=== PATIENT | female | born 1980 | race African-American/Black ===

== ENCOUNTER 2017-03-07 15:52 | Inpatient (IN) ==
[2017-03-07] MEDS ORDERED: MEPERIDINE 25 MG/1 ML VIAL IV PRN (21:02)
[2017-03-07] MEDS ORDERED: ONDANSETRON 4 MG/2 ML VIAL IV PRN (21:04)
[2017-03-07] MEDS ORDERED: SODIUM CHLORIDE 0.9% 1,000 ML IV SCH (21:30)
--- NOTE | 2017-03-07 22:07 | Ultrasound Report ---
History: Pain. Shortness of breath Date: 03/07/2017 Study: Bilateral lower extremity color-flow venous Doppler study Comparison exam: No previous Color Doppler, wave form analysis, and compression analysis of the deep veins of both lower extremities from the common femoral vein level through the popliteal vein level shows that the veins are readily compressible. There is no abnormal intraluminal material to suggest thrombus. Waveform analysis is unremarkable. Ultrasound images were captured and archived Impression: Normal bilateral lower extremity color flow venous Doppler study. No evidence of acute DVT PROCEDURE INTERPRETED AT [facility] [place] DEPARTMENT OF RADIOLOGY Final Report Signed by: Dr. Brook Wilson
[2017-03-07] MEDS: HEPARIN 5,000 UNIT/1 ML VIAL SUBCUT SCH (23:06)
[2017-03-08] MEDS: ACETAMINOPHEN 325 MG TABLET PO PRN ×3 (00:24→11:59)
[2017-03-08] MEDS: CLINDAMYCIN INJ 900 MG in PREMIX 1 EACH IV SCH ×3 (00:25→16:28)
[2017-03-08 01:07] LABS: Apearance,Urine CLEAR (Clear); Bacteria,Urine Moderate /HPF (Few); Bilirubin,Urine Negative (Negative); Blood, Urine Negative (Negative); Glucose,Urine (UA) Negative (Negative); Ketones,Urine 80 mg/dL (Negative); Nitrite,Urine Negative (Negative); Protein,Urine 100 MG/DL; RBC,Urine 2 /HPF (0-4); Squamous Epithelial Cell,Urine Occasional /HPF (0-10); Urine Color Yellow (Yellow); Urine Specific Gravity 1.038 (1.001-1.035); Urine Urobilinogen < 2.0 EU/DL (0.2-1.0); WBC,Urine 14 /HPF (0-6)
[2017-03-08] MEDS: metroNIDAZOLE INJ 500 MG in PREMIX 1 EACH IV SCH ×2 (04:58→20:37)
[2017-03-08] MEDS: HEPARIN 5,000 UNIT/1 ML VIAL SUBCUT SCH ×3 (05:58→20:36)
[2017-03-08 06:38] LABS: Basophils # 0.1 10*3/uL (0.0-0.2); Basophils % 0.2 % (0.0-0.8); Hematocrit 27.9 VOL% (35.7-47.0); Hemoglobin 9.5 GM/DL (12.0-16.0); Immature Granulocytes % 1.1 %; Immature Granulocytes Absolute 0.29 #; Lymphocytes # 1.3 10*3/uL (1.4-4.0); Lymphocytes % 4.8 % (21.3-54.2); Mean Corpuscular HGB Conc 34.1 GM/DL (32-36); Mean Corpuscular Hemoglobin 30 PG (27-34); Mean Corpuscular Volume 86.6 FL (87-102); Monocytes # 1.8 10*3/uL (0.11-0.8); Neutrophils # 22.8 10*3/uL (1.4-7.4); Neutrophils % 86.9 % (38.7-73.9); Platelet Count 238 T/CUMM (130-400); Red Blood Count 3.22 MC/CUMM (3.8-5.5); Red Cell Distribution Width 14.3 % (9.3-17.3); White Blood Count 26.2 T/CUMM (4-12)
[2017-03-08 07:12] LABS: Albumin 2.7 G/DL (3.4-5.0); Bilirubin,Total 1.3 MG/DL (0.2-1.0); Calcium 8.5 MG/DL (8.5-10.1); Osmolality,Calculated 272.7 MOS/KG (273-304); Potassium 3.1 MMOL/L (3.5-5.1); Total Protein 6.6 G/DL (6.4-8.3)
[2017-03-08 07:13] LABS: Band Neutrophils 7 % (0-10); Lymphocytes 2 % (20-55); Segmented Neutrophils 88 % (50-85)
[2017-03-08 07:14] LABS: Platelet Estimate Normal; Total Cells Counted 100
[2017-03-08] MEDS ORDERED: GENTAMICIN INJ 200 MG in SODIUM CHLORIDE 0.9% 100 ML IV ONE (09:00)
--- NOTE | 2017-03-08 09:12 | OB/GYN History & Physical ---
History of Present Illness History of present illness: Ms. pEps is a 37 year old female Home Medications Medication Instructions Recorded Confirmed Type Allopurinol 300 mg PO DAILY 03/08/17 03/08/17 History Amlodipine Besylate 10 mg PO DAILY 03/08/17 03/08/17 History hydroCHLOROthiazide 25 mg PO DAILY 03/08/17 03/08/17 History [Hydrochlorothiazide] Allergies Allergy/AdvReac Type Severity Reaction Status Date / Time hydrocodone [From Lortab] Allergy Severe HIVES Verified 02/17/15 16:18 Penicillins Allergy Severe HIVES Verified 02/17/15 16:18 Medical,Surgical,& Family Hx - Medical History Cardio: History of: Hypertension HEENT: History of: Eye Problem (GLASSES) Endocrine: No history of: Adrenal Disease, Diabetes Mellitus (IDDM), Diabetes Mellitus ( NIDDM), Thyroid Disorder, Endocrine Cancer, Endocrine Problems Respiratory: History of: Bronchitis ( A CHILD), Obstructive Sleep Apnea (USES CPAP AT HOME), Pneumonia ( A CHILD), Respiratory Problems No history of: Asthma, COPD, Intubation, Pulmonary Embolism, Pulmonary Hypertension, Lung Cancer Musculoskeletal: History of: Musculoskeletal Problems (GOUT (FEET,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)) Hematology: History of: Anemia No history of: Bleeding Problems, Clotting Problems, Sickle Cell Disease, Hematologic Cancer, Blood Disorders Reproductive: History of: Reproductive Problems (CYST REMOVED FROM OVARY IN 2009 (DOES NOT REMEMBER WHICH SIDE)) Other: History of: Skin Problems (KELOIDS BILATERAL EAR LOBES), Miscellaneous Medical Problems (I & D OF CYST/ABCESS ON BACK OF NECK IN 2006) - Surgical History Cardiac Surgeries: Patient Denies: Femoral-Popliteal Bypass Graft, Cardiac Catheterization, Cardiac Surgery, Carotid Endarterectomy, Internal Defibrillator, Vascular Access Devices Thoracic Surgeries: Patient denies;: Organ Transplant, Lobectomy HEENT Surgeries: Patient denies: Carotid Endarterectomy, Eye Surgery, Thyroid Surgery, Tonsilectomy & Adenoidectomy Abdominal Surgeries: Patient denies: Abdominal Surgery, Splenectomy Reproductive Surgeries: Surgical HX of;: Gynecologic Surgery (2009 CYST REMOVED FROM OVARY) - Family History Family History: Reports;: Family Diabetes (MOTHER, FATHER), Family Heart Disease (FATHER,PAT GRAND FATHER,MAT GM), Family Hypertension (FATHER, MOM,PAT GF), Family Stroke (PAT GM) Denies;: Family Anesthesia Reaction, Family Hematology, Family Psychiatric Problems Comment Only: Family Cancer (FATHER PROSTATE, PATERNAL GRANDFATHER PROSTATE, MAT GF BRAIN TUMOR) - Social History Smoking Status: Never smoker Frequency of Alcohol Use: None Type of Drug Use: None Exam YARDER - Constitutional Vitals: Vital Signs Temp Pulse Resp BP Pulse Ox 03/08/17 05:55 99.2 F 03/08/17 04:55 100.2 F H 03/08/17 04:50 100.2 F H 101 H 24 123/71 99 03/08/17 01:24 99.8 F H 03/08/17 01:20 99.8 F H 98 H 24 130/72 95 03/08/17 00:24 102.5 F H 03/08/17 00:20 102.5 F H 113 H 24 134/86 95 03/07/17 22:00 20 03/07/17 19:30 100.6 F H 97 H 22 115/58 95 Results - Labs CBC & BMP: 03/08/17 06:15 03/08/17 06:15
[2017-03-08] MEDS ORDERED: GLUCAGON 1 MG VIAL IM PRN (10:20)
[2017-03-08] MEDS ORDERED: MAGNESIUM HYDROXIDE SUSP 30 ML UDCUP PO PRN (10:20)
[2017-03-08] MEDS ORDERED: BISACODYL 10 MG SUPP RECTAL PRN (10:20)
[2017-03-08] MEDS ORDERED: DEXTROSE 50% 25 GM/50 ML VIAL IV PRN (10:20)
--- NOTE | 2017-03-08 10:27 | OB/GYN History & Physical ---
History of Present Illness Chief complaint: pelvic pain and fever History of present illness: Ms. Epps is a 37 year old female who was tranferred from [facility] last night. 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 The patient says she was doing fine until Saturday of this week when she woke up with a fever and started having pelvic pain. She took Tylenol and tried to go to work but it got worse and on , yesterday, she went to the doctor and they sent her to the ER for a CT scan. Yesterday she had a elevated white count of 27,000 and she had a CAT scan which showed a complex possible abscess on the left adnexal region. The patient had her last menstrual period about a week ago she has no known exposure to any STDs. She has never had any sexually transmitted infections. The patient is not on control and she does have one partner. The patient says the only medical problem she has is hypertension. The patient denies any urinary symptoms or GI symptoms. She has started having some diarrhea while hospitalized and some nausea while hospitalized but nothing prior to that. Home Medications Medication Instructions Recorded Confirmed Type Allopurinol 300 mg PO DAILY 03/08/17 03/08/17 History Amlodipine Besylate 10 mg PO DAILY 03/08/17 03/08/17 History hydroCHLOROthiazide 25 mg PO DAILY 03/08/17 03/08/17 History [Hydrochlorothiazide] Allergies Allergy/AdvReac Type Severity Reaction Status Date / Time hydrocodone [From Lortab] Allergy Severe HIVES Verified 02/17/15 16:18 Penicillins Allergy Severe HIVES Verified 02/17/15 16:18 Medical,Surgical,& Family Hx - Medical History Cardio: History of: Hypertension HEENT: History of: Eye Problem (GLASSES) Endocrine: No history of: Adrenal Disease, Diabetes Mellitus (IDDM), Diabetes Mellitus ( NIDDM), Thyroid Disorder, Endocrine Cancer, Endocrine Problems Respiratory: History of: Bronchitis ( A CHILD), Obstructive Sleep Apnea (USES CPAP AT HOME), Pneumonia ( A CHILD), Respiratory Problems No history of: Asthma, COPD, Intubation, Pulmonary Embolism, Pulmonary Hypertension, Lung Cancer Musculoskeletal: History of: Musculoskeletal Problems (GOUT (FEET,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)) Hematology: History of: Anemia No history of: Bleeding Problems, Clotting Problems, Sickle Cell Disease, Hematologic Cancer, Blood Disorders Reproductive: History of: Reproductive Problems (CYST REMOVED FROM OVARY IN 2009 (DOES NOT REMEMBER WHICH SIDE)) Other: History of: Skin Problems (KELOIDS BILATERAL EAR LOBES), Miscellaneous Medical Problems (I & D OF CYST/ABCESS ON BACK OF NECK IN 2006) - Surgical History Cardiac Surgeries: Patient Denies: Femoral-Popliteal Bypass Graft, Cardiac Catheterization, Cardiac Surgery, Carotid Endarterectomy, Internal Defibrillator, Vascular Access Devices Thoracic Surgeries: Patient denies;: Organ Transplant, Lobectomy HEENT Surgeries: Patient denies: Carotid Endarterectomy, Eye Surgery, Thyroid Surgery, Tonsilectomy & Adenoidectomy Abdominal Surgeries: Patient denies: Abdominal Surgery, Splenectomy Reproductive Surgeries: Surgical HX of;: Gynecologic Surgery (2009 CYST REMOVED FROM OVARY) - Family History Family History: Reports;: Family Diabetes (MOTHER, FATHER), Family Heart Disease (FATHER,PAT GRAND FATHER,MAT GM), Family Hypertension (FATHER, MOM,PAT GF), Family Stroke (PAT GM) Denies;: Family Anesthesia Reaction, Family Hematology, Family Psychiatric Problems Comment Only: Family Cancer (FATHER PROSTATE, PATERNAL GRANDFATHER PROSTATE, MAT GF BRAIN TUMOR) - Social History Smoking Status: Never smoker Frequency of Alcohol Use: None Type of Drug Use: None Exam ANGLE BENDER - Constitutional Vitals: Vital Signs Temp Pulse Resp BP Pulse Ox 03/08/17 05:55 99.2 F 03/08/17 04:55 100.2 F H 03/08/17 04:50 100.2 F H 101 H 24 123/71 99 03/08/17 01:24 99.8 F H 03/08/17 01:20 99.8 F H 98 H 24 130/72 95 03/08/17 00:24 102.5 F H 03/08/17 00:20 102.5 F H 113 H 24 134/86 95 03/07/17 22:00 20 03/07/17 19:30 100.6 F H 97 H 22 115/58 95 General appearance: mild distress, morbidly obese - Head Head exam: Present: normal inspection - Respiratory Respiratory exam: Present: clear to auscultation bilaterally. Absent: accessory muscle use - Breast Menstruation: menses 1-7 days, period normal - Cardiovascular Cardiovascular exam: Present: regular rate and rhythm - GI/Abdominal GI/Abdominal exam: Present: soft. Absent: guarding, tenderness, rebound - Extremities Exam Extremities exam: Absent: calf tenderness - Neurological Exam Neurological exam: Present: alert, oriented X3 - Skin Skin exam: Present: normal color Assessment and Plan (1) Tubo-ovarian abscess Status: Acute Assessment and plan: The pt was started on Flagyl and Cleocin yesterday. She has a penicillin allergy. I added Gentamycin today. We will let the pt eat bc she does not have an acute abdomen. I will place her on a diabetic diet. Recheck CBC in the morning Current Visit: Yes Results - Labs CBC & BMP: 03/08/17 06:15 03/08/17 06:15
[2017-03-08] MEDS: LACTATED RINGERS 1,000 ML IV SCH ×2 (11:52→22:52)
[2017-03-08] MEDS: IBUPROFEN 800 MG TABLET PO PRN (17:00)
[2017-03-08] MEDS: GENTAMICIN INJ 120 MG in PREMIX 1 EACH IV SCH (17:40)
[2017-03-08] MEDS: DOCUSATE SODIUM 100 MG CAPSULE PO SCH (20:36)
[2017-03-09] MEDS: CLINDAMYCIN INJ 900 MG in PREMIX 1 EACH IV SCH ×3 (00:11→16:50)
[2017-03-09] MEDS: GENTAMICIN INJ 120 MG in PREMIX 1 EACH IV SCH ×3 (02:22→17:33)
[2017-03-09] MEDS: HEPARIN 5,000 UNIT/1 ML VIAL SUBCUT SCH ×3 (04:40→21:28)
[2017-03-09 05:54] LABS: Basophils % 0.2 % (0.0-0.8); Eosinophils # 0.1 10*3/uL (0.0-0.87); Eosinophils % 0.3 % (0.00-10.9); Hematocrit 28.8 VOL% (35.7-47.0); Hemoglobin 9.6 GM/DL (12.0-16.0); Immature Granulocytes % 0.7 %; Immature Granulocytes Absolute 0.15 #; Lymphocytes # 0.9 10*3/uL (1.4-4.0); Lymphocytes % 4.6 % (21.3-54.2); Mean Corpuscular HGB Conc 33.3 GM/DL (32-36); Mean Corpuscular Hemoglobin 29 PG (27-34); Mean Corpuscular Volume 87.5 FL (87-102); Mean Platelet Volume 12.8 FL (9.6-12.0); Monocytes # 1.3 10*3/uL (0.11-0.8); Monocytes % 6.5 % (1.7-12.7); Neutrophils # 18.1 10*3/uL (1.4-7.4); Neutrophils % 87.7 % (38.7-73.9); Platelet Count 260 T/CUMM (130-400); Red Blood Count 3.29 MC/CUMM (3.8-5.5); Red Cell Distribution Width 14.4 % (9.3-17.3); White Blood Count 20.6 T/CUMM (4-12)
[2017-03-09 06:15] LABS: Calcium 8.1 MG/DL (8.5-10.1); Osmolality,Calculated 278.3 MOS/KG (273-304); Potassium 3.6 MMOL/L (3.5-5.1)
[2017-03-09 08:11] LABS: Band Neutrophils 5 % (0-10); Hypochromasia 1+; Lymphocytes 4 % (20-55); Platelet Estimate Adequate; Segmented Neutrophils 90 % (50-85); Total Cells Counted 100
[2017-03-09] MEDS: DOCUSATE SODIUM 100 MG CAPSULE PO SCH ×2 (08:43→21:25)
[2017-03-09] MEDS: ACETAMINOPHEN 325 MG TABLET PO PRN (08:44)
[2017-03-09] MEDS: LACTATED RINGERS 1,000 ML IV SCH ×2 (08:49→16:51)
--- NOTE | 2017-03-09 11:38 | OB/GYN Progress Note ---
Assessment and Plan (1) Tubo-ovarian abscess Status: Acute Assessment and plan: The pt was started on Flagyl and Cleocin yesterday. She has a penicillin allergy. I added Gentamycin today. We will let the pt eat bc she does not have an acute abdomen. I will place her on a diabetic diet. Recheck CBC in the morning Current Visit: Yes Exam SLAB TRIPPER - Constitutional Vitals: Vital Signs Temp Pulse Resp BP Pulse Ox Pulse Ox 03/09/17 08:44 102.3 F H 03/09/17 08:00 102.3 F H 106 H 24 137/68 96 03/09/17 06:00 24 03/09/17 04:05 18 03/09/17 04:00 99.8 F H 108 H 30 H 105/76 95 03/09/17 01:42 24 03/09/17 00:00 98.4 F 83 24 119/66 94 L 03/08/17 22:45 20 03/08/17 22:00 18 03/08/17 19:40 97.7 F 97 H 20 130/70 95 03/08/17 18:05 18 03/08/17 16:35 20 03/08/17 15:41 98.4 F 100 H 20 168/52 98 03/08/17 12:59 99.9 F H 03/08/17 11:59 102.9 F H 03/08/17 11:55 102.9 F H 109 H 20 114/53 96 03/08/17 11:54 20 Results - Labs CBC & BMP: 03/09/17 04:36 03/09/17 04:36
--- NOTE | 2017-03-09 12:20 | OB/GYN Progress Note ---
Assessment and Plan (1) Tubo-ovarian abscess Status: Acute Assessment and plan: The pt is on Cleocin, Flagyl and Gentamycin . Her WBCs are coming down but she is still spiking a fever. Reviewed CT scan with radiologist again today. The pt has had this mass apparently, for several years. We may consider changing antibiotics. Current Visit: Yes (2) Shortness of breath Status: Acute Assessment and plan: possibly due to fever. The pt is on heparin and her LE dopplers were negative. I will call the hospitalist to evaluate the pt. Current Visit: Yes STONEWORKING BELT SANDER - PN: Subj Interval history: The pt is short of breath since last night. She denies pelvic pain. Exam STONEWORKING BELT SANDER - Constitutional Vitals: Vital Signs Temp Pulse Resp BP Pulse Ox Pulse Ox 03/09/17 11:55 99.5 F 101 H 22 140/81 92 L 03/09/17 09:44 99.5 F 03/09/17 08:44 102.3 F H 03/09/17 08:00 102.3 F H 106 H 24 137/68 96 03/09/17 06:00 24 03/09/17 04:05 18 03/09/17 04:00 99.8 F H 108 H 30 H 105/76 95 03/09/17 01:42 24 03/09/17 00:00 98.4 F 83 24 119/66 94 L 03/08/17 22:45 20 03/08/17 22:00 18 03/08/17 19:40 97.7 F 97 H 20 130/70 95 03/08/17 18:05 18 03/08/17 16:35 20 03/08/17 15:41 98.4 F 100 H 20 168/52 98 03/08/17 12:59 99.9 F H General appearance: mild distress, morbidly obese - Respiratory Respiratory exam: Present: clear to auscultation bilaterally, other (tachypnic) - Cardiovascular Cardiovascular exam: Present: tachycardia - GI/Abdominal GI/Abdominal exam: Present: soft. Absent: guarding, tenderness, rebound - Extremities Exam Extremities exam: Absent: calf tenderness - Neurological Exam Neurological exam: Present: alert, oriented X3 - Skin Skin exam: Present: normal color, warm Results - Labs CBC & BMP: 03/09/17 04:36 03/09/17 04:36
[2017-03-09] MEDS: metroNIDAZOLE INJ 500 MG in PREMIX 1 EACH IV SCH ×2 (12:39→21:28)
[2017-03-09] MEDS ORDERED: ALBUTEROL/IPRATROPIUM 3 ML NEB RESP TX PRN (12:53)
[2017-03-09] MEDS ORDERED: CALCIUM CARBONATE CHEW 500 MG TABLET PO PRN (12:57)
[2017-03-09 13:34] LABS: ABG Base Excess 2.8 MMOL/L (-2.5-2.5); ABG HCO3 25.2 MMOL/L (20-26); ABG Oxygen Saturation 85.6 % (95-100); ABG PCO2 30.9 MM HG (35-48); ABG PH 7.529 (7.35-7.45); ABG PO2 42.1 MM HG (80-95); ABG TCO2 26.1 MMOL/L (23-27); Allen Test Positive; Pt O2 Delivery Device Room Air
[2017-03-09] MEDS: PANTOPRAZOLE 20 MG TABLET PO SCH (13:53)
--- NOTE | 2017-03-09 14:41 | XRay Report ---
2 view chest. Indication: Shortness of breath. Comparison: March 07, 2017. The heart is borderline enlarged. The pulmonary vasculature is prominent. On the lateral view, there is apparent opacity in the lower lung zones, suggestive of infiltrate. No pneumothorax. No definite pleural effusion. Osseous structures are unremarkable. Impression: Mild cardiomegaly, venous congestion, and basilar infiltrates. PROCEDURE INTERPRETED AT [facility] DEPARTMENT OF RADIOLOGY Final Report Signed by: Dr. Luciana Martinez
--- NOTE | 2017-03-09 14:43 | CT Report ---
CT of the chest with intravenous contrast, PE protocol. Indication: Shortness of breath. 160 cc Optiray 350. There is limitation to the study, due to poor opacification of the pulmonary arteries. 2 attempts were utilized. This may be due to altered cardiac output. Axial images were obtained with sagittal and coronal reconstructions. The thyroid gland is normal in size. There is no supraclavicular lymphadenopathy. Borderline enlarged lymph nodes are seen in both axillary regions. The heart is mildly enlarged. There is no pericardial effusion. The thoracic aorta is of normal caliber. No sizable pulmonary thromboembolism is seen. Evaluation of the tertiary branches is limited by both the concentration of contrast, and also about the bilateral infiltrates which are present. There are bilateral predominantly alveolar infiltrates present in each lower lobe. No pleural effusion. Impression: 1. No definite finding to indicate pulmonary thromboembolism. 2. Mild cardiomegaly. 3. Bilateral basilar alveolar infiltrates, moderately large. The CT exam was performed using one or more of the following dose reduction techniques: Automated exposure control, adjustment of the mA and/or kV according to patient size, or use of iterative reconstruction technique. PROCEDURE INTERPRETED AT [facility] DEPARTMENT OF RADIOLOGY Final Report Signed by: Dr. Luciana Martinez
[2017-03-09] MEDS: ALBUTEROL/IPRATROPIUM 3 ML NEB RESP TX SCH ×3 (15:01→23:10)
--- NOTE | 2017-03-09 15:18 | Hospitalist Consult Note ---
Assessment and Plan (1) Leukocytosis Status: Acute Assessment and plan: Improving on the current antibiotic regimen. Possibly due to tubo-ovarian abscess but there is also the possibility of this being chronic cxr and ct with bilateral infiltrates, could possibly be pneumonia, clinda and gent provide some coverage but not atypical coverage, will add azithromycin Blood cultures negative to date, f/u final, will repeat now with new fever Check sputum culture, legionella and strep Also with some diarrhea, will check c.diff and stool cultures Current Visit: Yes (2) Fever Status: Acute Current Visit: Yes (3) Bilateral pulmonary infiltrates on chest x-ray Status: Acute Assessment and plan: Expand antibiotics to cover for atypicals Current Visit: Yes (4) Shortness of breath Status: Acute Assessment and plan: Patient denies previous episodes of this CXR with bilateral infiltrates CT PE without PE but does show bilateral basilar alveolar infiltrates Will treat as pna CXR looks like pulmonary edema to me, will check a bnp and echo IV fluids have been discontinued, will give one dose of lasix She also has HECTOR and does not wear her cpap, will order Current Visit: Yes History of Present Illness - Data of Consult Consult date: 03/09/17 Requesting Physician: Divya Lyman - Consult Narrative Reason for consult: shortness of breath History of present illness: 37 y/o AAF with HTN admitted to the ob-ladler service form an [facility] for evaluation of a pelvic mass. She reports pelvic pain and fevers starting last Saturday. CT scan done at [facility]sh showed a possible abscess of the left adnexal region. She is currently on clindamycin, gentamicin and metronidazole. She has remained febrile since admission. Early this morning she experienced an episode of sob, which has only mildly improved. CC: Divya Adair- - Home Medications and Allergies Home Medications: Home Medications Medication Instructions Recorded Confirmed Type Allopurinol 300 mg PO DAILY 03/08/17 03/08/17 History Amlodipine Besylate 10 mg PO DAILY 03/08/17 03/08/17 History hydroCHLOROthiazide 25 mg PO DAILY 03/08/17 03/08/17 History [Hydrochlorothiazide] Allergies/Adverse Reactions: Allergies Allergy/AdvReac Type Severity Reaction Status Date / Time hydrocodone [From Lortab] Allergy Severe HIVES Verified 02/17/15 16:18 Penicillins Allergy Severe HIVES Verified 02/17/15 16:18 Medical,Surgical,& Family Hx - Medical History Cardio: History of: Hypertension HEENT: History of: Eye Problem (GLASSES) Endocrine: No history of: Adrenal Disease, Diabetes Mellitus (IDDM), Diabetes Mellitus ( NIDDM), Thyroid Disorder, Endocrine Cancer, Endocrine Problems Respiratory: History of: Bronchitis ( A CHILD), Obstructive Sleep Apnea (USES CPAP AT HOME), Pneumonia ( A CHILD), Respiratory Problems No history of: Asthma, COPD, Intubation, Pulmonary Embolism, Pulmonary Hypertension, Lung Cancer Musculoskeletal: History of: Musculoskeletal Problems (GOUT (FEET,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)) Hematology: History of: Anemia No history of: Bleeding Problems, Clotting Problems, Sickle Cell Disease, Hematologic Cancer, Blood Disorders Reproductive: History of: Reproductive Problems (CYST REMOVED FROM OVARY IN 2009 (DOES NOT REMEMBER WHICH SIDE)) Other: History of: Skin Problems (KELOIDS BILATERAL EAR LOBES), Miscellaneous Medical Problems (I & D OF CYST/ABCESS ON BACK OF NECK IN 2006) - Surgical History Cardiac Surgeries: Patient Denies: Femoral-Popliteal Bypass Graft, Cardiac Catheterization, Cardiac Surgery, Carotid Endarterectomy, Internal Defibrillator, Vascular Access Devices Thoracic Surgeries: Patient denies;: Organ Transplant, Lobectomy HEENT Surgeries: Patient denies: Carotid Endarterectomy, Eye Surgery, Thyroid Surgery, Tonsilectomy & Adenoidectomy Abdominal Surgeries: Patient denies: Abdominal Surgery, Splenectomy Reproductive Surgeries: Surgical HX of;: Gynecologic Surgery (2009 CYST REMOVED FROM OVARY) - Family History Family History: Reports;: Family Diabetes (MOTHER, FATHER), Family Heart Disease (FATHER,PAT GRAND FATHER,MAT GM), Family Hypertension (FATHER, MOM,PAT GF), Family Stroke (PAT GM) Denies;: Family Anesthesia Reaction, Family Hematology, Family Psychiatric Problems Comment Only: Family Cancer (FATHER PROSTATE, PATERNAL GRANDFATHER PROSTATE, MAT GF BRAIN TUMOR) - Social History Smoking Status: Never smoker Frequency of Alcohol Use: None Type of Drug Use: None - Constitutional Constitutional: Present: fever(s). Absent: headache(s) - EENT Eyes: Absent: blurry vision, loss of vision Ears: Absent: decreased hearing, ear pain Nose, mouth and throat: Absent: lip swelling, sore throat - Cardiovascular Cardiovascular: Present: dyspnea. Absent: chest pain at rest - Respiratory Respiratory: Present: cough. Absent: wheezing - Gastrointestinal Gastrointestinal: Absent: abdominal pain, dysphagia - Genitourinary Genitourinary: Absent: difficulty urinating, flank pain - Musculoskeletal Musculoskeletal: Absent: back pain, joint swelling - Neurological Neurological: Absent: dizziness, frequent falls - Psychiatric Psychiatric: Absent: anxiety, depression - Endocrine Endocrine: Absent: cold intolerance, heat intolerance - Hematologic/Lymphatic Hematologic/Lymphatic: Absent: easy bleeding, easy bruising Exam - Constitutional Vitals: Period Temp Pulse Resp BP Sys/Ferrer Pulse Ox Last 24 Hr 97.7 F-102.3 F 83-112 18-30 105-168/52-81 92-98 General appearance: morbidly obese - Head Head exam: Present: normocephalic, atraumatic - Eye Eye exam: Present: EOMI Pupils: Present: TRINI - ENT ENT exam: Present: normal exam - Neck Neck exam: Present: normal inspection - Respiratory Respiratory exam: Present: decreased breath sounds - Cardiovascular Cardiovascular exam: Present: regular rate and rhythm - GI/Abdominal GI/Abdominal exam: Present: normal bowel sounds, soft. Absent: tenderness, rebound - Extremities Exam Extremities exam: Present: normal inspection - Back Exam Back exam: Present: normal inspection - Neurological Exam Neurological exam: Present: alert, oriented X3 - Psychiatric Psychiatric exam: Present: normal affect, normal mood - Skin Skin exam: Present: warm, intact Results - Labs CBC & BMP: 03/09/17 04:36 03/09/17 04:36
[2017-03-09] MEDS: IBUPROFEN 800 MG TABLET PO PRN (15:23)
[2017-03-09] MEDS ORDERED: FUROSEMIDE 40 MG/4 ML VIAL IV ONE (16:25)
[2017-03-09] MEDS: AZITHROMYCIN INJ 500 MG in SODIUM CHLORIDE 0.9% 250 ML IV SCH (18:09)
[2017-03-10] MEDS: CLINDAMYCIN INJ 900 MG in PREMIX 1 EACH IV SCH ×4 (00:19→23:28)
[2017-03-10] MEDS: GENTAMICIN INJ 120 MG in PREMIX 1 EACH IV SCH ×3 (01:01→17:58)
[2017-03-10] MEDS: ALBUTEROL/IPRATROPIUM 3 ML NEB RESP TX SCH ×6 (03:31→22:54)
[2017-03-10] MEDS: HEPARIN 5,000 UNIT/1 ML VIAL SUBCUT SCH ×3 (05:21→20:25)
[2017-03-10 05:43] LABS: Basophils % 0.2 % (0.0-0.8); Eosinophils # 0.1 10*3/uL (0.0-0.87); Eosinophils % 0.7 % (0.00-10.9); Hematocrit 25.5 VOL% (35.7-47.0); Hemoglobin 8.5 GM/DL (12.0-16.0); Immature Granulocytes % 1.2 %; Immature Granulocytes Absolute 0.21 #; Lymphocytes # 1.1 10*3/uL (1.4-4.0); Lymphocytes % 6.4 % (21.3-54.2); Mean Corpuscular HGB Conc 33.3 GM/DL (32-36); Mean Corpuscular Hemoglobin 29 PG (27-34); Mean Corpuscular Volume 86.1 FL (87-102); Mean Platelet Volume 12.7 FL (9.6-12.0); Monocytes # 1.6 10*3/uL (0.11-0.8); Neutrophils # 14.2 10*3/uL (1.4-7.4); Neutrophils % 82.5 % (38.7-73.9); Platelet Count 285 T/CUMM (130-400); Red Blood Count 2.96 MC/CUMM (3.8-5.5); Red Cell Distribution Width 14.5 % (9.3-17.3); White Blood Count 17.2 T/CUMM (4-12)
[2017-03-10 06:12] LABS: Magnesium 1.9 MG/DL (1.8-2.4); Osmolality,Calculated 277.3 MOS/KG (273-304); Potassium 3.2 MMOL/L (3.5-5.1)
[2017-03-10 06:38] LABS: Band Neutrophils 3 % (0-10); Eosinophils 1 % (0-10); Lymphocytes 8 % (20-55); Nucleated Red Blood Cells 1 (0-5); Platelet Estimate Normal; Segmented Neutrophils 84 % (50-85); Total Cells Counted 100
[2017-03-10 06:39] LABS: Microcytosis 1+
--- NOTE | 2017-03-10 08:05 | XRay Report ---
Single view of the chest. Indication: Shortness of breath. Comparison: March 09, 2017. The heart is mildly enlarged. The pulmonary vasculature is prominent. There are bilateral basilar infiltrates. There is atelectasis which has developed in the interval. Pleural effusion cannot be excluded on the left. Impression: Worsening parenchymal findings, with development of atelectasis and possible left pleural effusion. PROCEDURE INTERPRETED AT [facility] DEPARTMENT OF RADIOLOGY Final Report Signed by: Dr. Luciana Martinez
[2017-03-10] MEDS: ACETAMINOPHEN 325 MG TABLET PO PRN (08:46)
[2017-03-10] MEDS: DOCUSATE SODIUM 100 MG CAPSULE PO SCH ×2 (08:47→20:21)
[2017-03-10] MEDS: PANTOPRAZOLE 20 MG TABLET PO SCH (08:48)
--- NOTE | 2017-03-10 08:50 | OB/GYN Progress Note ---
Assessment and Plan (1) Tubo-ovarian abscess Status: Acute Assessment and plan: We will stop the Flagyl. Still questionable if this is an acute TOA. Per records the pt has had this adnexal mass since 2012 and per radiologist it looks better than 4 years ago. We will continue antibiotic treatment for the TOA with Gent and Clinda bc the pt is symptomatically better. Current Visit: Yes (2) Shortness of breath Status: Acute Assessment and plan: Appreciate Dr. Medina's help . Spoke to her this morning and she has consulted pulmonary. Current Visit: Yes ADVENTURE GUIDE - PN: Subj Interval history: The pt denies any abdominal pain. She still has diarrhea. Her SOB seems to be a little better per pt history. She is tolerating PO well Exam ADVENTURE GUIDE - Constitutional Vitals: Vital Signs Temp Pulse Pulse Resp BP Pulse Ox Pulse Ox 03/10/17 07:06 116 H 16 99 03/10/17 06:58 112 H 16 93 L 03/10/17 04:05 22 03/10/17 04:00 100.5 F H 102 H 22 133/87 95 03/10/17 03:33 102 H 18 96 03/10/17 03:26 105 H 19 92 L 03/10/17 01:49 20 03/10/17 00:05 20 03/10/17 00:00 99.9 F H 99 H 20 127/75 91 L 03/09/17 23:12 92 H 18 97 03/09/17 23:05 90 19 94 L 03/09/17 22:15 20 03/09/17 20:11 98.9 F 91 H 19 106/58 03/09/17 20:01 92 H 20 96 03/09/17 19:56 90 18 94 L 03/09/17 15:45 102.5 F H 112 H 24 151/80 03/09/17 15:23 102.5 F H 03/09/17 15:07 112 H 18 98 03/09/17 15:02 109 H 20 92 L 03/09/17 11:55 99.5 F 101 H 22 140/81 03/09/17 09:44 99.5 F Pulse Ox 03/10/17 07:06 03/10/17 06:58 03/10/17 04:05 03/10/17 04:00 03/10/17 03:33 03/10/17 03:26 03/10/17 01:49 03/10/17 00:05 03/10/17 00:00 03/09/17 23:12 03/09/17 23:05 03/09/17 22:15 03/09/17 20:11 95 03/09/17 20:01 03/09/17 19:56 03/09/17 15:45 98 03/09/17 15:23 03/09/17 15:07 03/09/17 15:02 03/09/17 11:55 92 L 03/09/17 09:44 General appearance: mild distress, morbidly obese - Respiratory Respiratory exam: Present: decreased breath sounds (left >right) - Cardiovascular Cardiovascular exam: Present: regular rate and rhythm - GI/Abdominal GI/Abdominal exam: Present: other. Absent: guarding, tenderness, rebound - Extremities Exam Extremities exam: Absent: calf tenderness - Neurological Exam Neurological exam: Present: alert, oriented X3 - Psychiatric Psychiatric exam: Present: normal affect Results - Labs CBC & BMP: 03/10/17 04:22 03/10/17 04:22
--- NOTE | 2017-03-10 09:42 | Pulmonology Consult Note ---
Assessment and Plan (1) Shortness of breath Status: Acute Assessment and plan: Patient with acute dyspnea. Possibly pneumonia but patient is on 3 antibiotics and most probable organisms are covered. Could not fully rule out PE on CT scan , but her Wells score is low. She could have an undiagnosed obstructive lung disease like asthma. She does endorse that breathing treatments are helping. Will try a few days of prednisone and see if that helps. Additionally, CT findings may be more atelectatic in nature. Patient should have an incentive spirometer at bedside and use at least hourly. Finally it could be that patient is having subjective dyspnea from the respiratory compensation of her metabolic process from her pelvic infection and that as the abscess improves, so will her dyspnea. Oral continue to follow along Plan: -Add Prednisone 40mg po daily x 5 days -Incentive spirometer to bedside, use hourly while awake -CPAP at night and while asleep Current Visit: Yes History of Present Illness Chief complaint: shortness of breath History of present illness: Ms. Epps is a 37 year old female Admitted for tubovarian abscess. She reports that 2 days ago she developed shortness of breath at rest. She endorses productive cough of scant yellow sputum. Denies hemoptysis. Denies history of asthma, smoking or other lung disease. Home Medications Medication Instructions Recorded Confirmed Type Allopurinol 300 mg PO DAILY 03/08/17 03/08/17 History Amlodipine Besylate 10 mg PO DAILY 03/08/17 03/08/17 History hydroCHLOROthiazide 25 mg PO DAILY 03/08/17 03/08/17 History [Hydrochlorothiazide] Allergies Allergy/AdvReac Type Severity Reaction Status Date / Time hydrocodone [From Lortab] Allergy Severe HIVES Verified 02/17/15 16:18 Penicillins Allergy Severe HIVES Verified 02/17/15 16:18 12 point system: reviewed and no additional remarkable complaints except as stated - Constitutional Constitutional: Present: as per HPI Exam (Pulmonay) H&P - Constitutional Vitals: Period Temp Pulse Resp BP Sys/Ferrer Pulse Ox Last 24 Hr 98.9 F-102.5 F 90-116 16-24 106-151/58-87 91-99 General appearance: morbidly obese - Head Head exam: Present: normal inspection - Eye Eye exam: Present: EOMI - Neck Neck exam: Present: normal inspection - Respiratory Respiratory exam: Present: clear to auscultation bilaterally. Absent: accessory muscle use, rales, rhonchi, stridor, wheezes - Cardiovascular Cardiovascular exam: Present: regular rate and rhythm - GI/Abdominal GI/Abdominal exam: Present: normal bowel sounds Medical,Surgical,& Family Hx - Medical History Cardio: History of: Hypertension HEENT: History of: Eye Problem (GLASSES) Endocrine: No history of: Adrenal Disease, Diabetes Mellitus (IDDM), Diabetes Mellitus ( NIDDM), Thyroid Disorder, Endocrine Cancer, Endocrine Problems Respiratory: History of: Bronchitis ( A CHILD), Obstructive Sleep Apnea (USES CPAP AT HOME), Pneumonia ( A CHILD), Respiratory Problems No history of: Asthma, COPD, Intubation, Pulmonary Embolism, Pulmonary Hypertension, Lung Cancer Musculoskeletal: History of: Musculoskeletal Problems (GOUT (FEET,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)) Hematology: History of: Anemia No history of: Bleeding Problems, Clotting Problems, Sickle Cell Disease, Hematologic Cancer, Blood Disorders Reproductive: History of: Reproductive Problems (CYST REMOVED FROM OVARY IN 2009 (DOES NOT REMEMBER WHICH SIDE)) Other: History of: Skin Problems (KELOIDS BILATERAL EAR LOBES), Miscellaneous Medical Problems (I & D OF CYST/ABCESS ON BACK OF NECK IN 2006) - Surgical History Cardiac Surgeries: Patient Denies: Femoral-Popliteal Bypass Graft, Cardiac Catheterization, Cardiac Surgery, Carotid Endarterectomy, Internal Defibrillator, Vascular Access Devices Thoracic Surgeries: Patient denies;: Organ Transplant, Lobectomy HEENT Surgeries: Patient denies: Carotid Endarterectomy, Eye Surgery, Thyroid Surgery, Tonsilectomy & Adenoidectomy Abdominal Surgeries: Patient denies: Abdominal Surgery, Splenectomy Reproductive Surgeries: Surgical HX of;: Gynecologic Surgery (2009 CYST REMOVED FROM OVARY) - Family History Family History: Reports;: Family Diabetes (MOTHER, FATHER), Family Heart Disease (FATHER,PAT GRAND FATHER,MAT GM), Family Hypertension (FATHER, MOM,PAT GF), Family Stroke (PAT GM) Denies;: Family Anesthesia Reaction, Family Hematology, Family Psychiatric Problems Comment Only: Family Cancer (FATHER PROSTATE, PATERNAL GRANDFATHER PROSTATE, MAT GF BRAIN TUMOR) - Social History Smoking Status: Never smoker Frequency of Alcohol Use: None Type of Drug Use: None Results - Labs CBC & BMP: 03/10/17 04:22 03/10/17 04:22 Lab Results: I have reviewed the past 24 hour labs - Diagnostic Findings Procedure: Chest x-ray: image reviewed by me, report reviewed by me (Reviewed image and report. Bilateral lower lobe airspace filling process)
[2017-03-10] MEDS: POTASSIUM CHLORIDE 20 MEQ TABLET PO PRN ×4 (09:52→18:33)
--- NOTE | 2017-03-10 10:35 | Hospitalist Progress Note ---
Assessment and Plan (1) Leukocytosis Status: Acute Assessment and plan: Improving on the current antibiotic regimen. Possibly due to tubo-ovarian abscess but there is also the possibility of this being chronic cxr and ct with bilateral infiltrates, could possibly be pneumonia, clinda and gent provide some coverage but not atypical coverage, will add azithromycin Blood cultures negative to date, f/u final and repeat cultures sputum culture with no growth, legionella and strep pending C.diff negative Current Visit: Yes (2) Fever Status: Acute Current Visit: Yes (3) Bilateral pulmonary infiltrates on chest x-ray Status: Acute Assessment and plan: Covering for pneumonia Given dose of lasix without improvement, will continue lasix for now, repeat cxr in am Pulmonary consulted, adding prednisone and incentive spirometry Current Visit: Yes (4) Shortness of breath Status: Acute Assessment and plan: Patient denies previous episodes of this CXR with bilateral infiltrates CT PE without PE but does show bilateral basilar alveolar infiltrates Will treat as pna CXR without much change, bnp on very mildly elevated IV fluids have been discontinued, continue lasix for today She also has HECTOR and does not wear her cpap at home Current Visit: Yes (5) HECTOR (obstructive sleep apnea) Status: Acute Assessment and plan: Continue nightly cpap Current Visit: Yes Hospitalist: Subjective Interval history: No acute events overnight. Reports that her breathing is much better today. Exam - Constitutional Vitals: Period Temp Pulse Resp BP Sys/Ferrer Pulse Ox Last 24 Hr 98.9 F-102.5 F 90-116 16-24 106-151/58-87 91-99 General appearance: morbidly obese - Head Head exam: Present: normocephalic, atraumatic - Eye Eye exam: Present: EOMI Pupils: Present: TRINI - ENT ENT exam: Present: normal exam - Neck Neck exam: Present: normal inspection - Respiratory Respiratory exam: Present: decreased breath sounds. Absent: wheezes - Cardiovascular Cardiovascular exam: Present: regular rate and rhythm - GI/Abdominal GI/Abdominal exam: Present: normal bowel sounds, soft. Absent: tenderness, rebound - Extremities Exam Extremities exam: Present: normal inspection - Back Exam Back exam: Present: normal inspection - Neurological Exam Neurological exam: Present: alert, oriented X3 - Psychiatric Psychiatric exam: Present: normal affect, normal mood - Skin Skin exam: Present: warm, intact Results - Labs CBC & BMP: 03/10/17 04:22 03/10/17 04:22
[2017-03-10] MEDS: predniSONE 20 MG TABLET PO SCH (10:49)
[2017-03-10] MEDS: AZITHROMYCIN INJ 500 MG in SODIUM CHLORIDE 0.9% 250 ML IV SCH (16:10)
[2017-03-10] MEDS: FUROSEMIDE 40 MG/4 ML VIAL IV SCH (16:39)
[2017-03-11] MEDS: GENTAMICIN INJ 120 MG in PREMIX 1 EACH IV SCH ×2 (00:06→11:16)
[2017-03-11 00:25] LABS: Basophils % 0.2 % (0.0-0.8); Eosinophils % 0.1 % (0.00-10.9); Hemoglobin 8.7 GM/DL (12.0-16.0); Immature Granulocytes % 1.5 %; Immature Granulocytes Absolute 0.26 #; Lymphocytes # 1.5 10*3/uL (1.4-4.0); Lymphocytes % 8.5 % (21.3-54.2); Mean Corpuscular HGB Conc 33.5 GM/DL (32-36); Mean Corpuscular Hemoglobin 29 PG (27-34); Mean Corpuscular Volume 86.4 FL (87-102); Mean Platelet Volume 11.9 FL (9.6-12.0); Monocytes # 1.6 10*3/uL (0.11-0.8); Monocytes % 8.8 % (1.7-12.7); NRBC # 0.03 10*3/uL; Neutrophils # 14.3 10*3/uL (1.4-7.4); Neutrophils % 80.9 % (38.7-73.9); Platelet Count 330 T/CUMM (130-400); Red Blood Count 3.01 MC/CUMM (3.8-5.5); Red Cell Distribution Width 14.6 % (9.3-17.3); White Blood Count 17.7 T/CUMM (4-12)
[2017-03-11 00:54] LABS: Calcium 8.7 MG/DL (8.5-10.1); Magnesium 1.9 MG/DL (1.8-2.4); Osmolality,Calculated 277.4 MOS/KG (273-304); Potassium 3.2 MMOL/L (3.5-5.1)
[2017-03-11] MEDS: POTASSIUM CHLORIDE RIDER 10 MEQ in PREMIX 1 EACH IV PRN ×7 (01:03→17:23)
[2017-03-11] MEDS: ALBUTEROL/IPRATROPIUM 3 ML NEB RESP TX SCH ×5 (01:50→19:56)
[2017-03-11] MEDS: HEPARIN 5,000 UNIT/1 ML VIAL SUBCUT SCH ×3 (05:17→21:05)
--- NOTE | 2017-03-11 07:25 | XRay Report ---
Exam: XR chest 1V Date: 03/11/2017 4:00 AM Indication: Shortness of breath Comparison: 03/10/2017 Technical: AP portable Findings: Cardiomegaly is present with mild shunt vascularity without obvious effusion. Mediastinum is otherwise intact. The bony structures are unremarkable. Impression: Cardiomegaly with mild interstitial edema, component of minimal CHF is questioned PROCEDURE INTERPRETED AT [facility] DEPARTMENT OF RADIOLOGY Final Report Signed by: Dr. Lamont Greco
[2017-03-11] MEDS: CLINDAMYCIN INJ 900 MG in PREMIX 1 EACH IV SCH ×2 (08:46→19:33)
[2017-03-11] MEDS: FUROSEMIDE 40 MG/4 ML VIAL IV SCH ×2 (08:47→17:22)
[2017-03-11] MEDS: PANTOPRAZOLE 20 MG TABLET PO SCH (08:47)
[2017-03-11] MEDS: DOCUSATE SODIUM 100 MG CAPSULE PO SCH ×2 (08:47→21:06)
[2017-03-11] MEDS: predniSONE 20 MG TABLET PO SCH (08:47)
--- NOTE | 2017-03-11 08:53 | Pulmonology Progress Note ---
Pulmonary - PN: Subj Interval history: Patient is a 37-year-old black lady that is being treated for a tubovarian abscess. She has a history of hypertension and is very overweight. Apparently over the weekend she had more shortness of breath along with some mild cough with yellow sputum. She is on multiple antibiotics. She has diuresed fairly well and feels much better. Her chest x-ray and CT did suggest some mild overload. She says she is much more comfortable today. Exam (Progress Note) - Constitutional Vitals: Period Temp Pulse Resp BP Sys/Ferrer Pulse Ox Last 24 Hr 98.1 F-99.7 F 84-103 18-26 119-134/63-88 83-99 General appearance: no acute distress (She looks quite comfortable.), morbidly obese - Head Head exam: Present: normal inspection, normocephalic - Eye Eye exam: Present: EOMI. Absent: scleral icterus Pupils: Present: TRINI - ENT ENT exam: Present: other (She has a class III Mallampati exam) - Neck Neck exam: Present: normal inspection. Absent: lymphadenopathy, thyromegaly - Respiratory Respiratory exam: Present: decreased breath sounds (She has decreased breath sounds in the bases but I cannot hear much rales or wheezing.). Absent: rales, wheezes - Cardiovascular Cardiovascular exam: Present: regular rate and rhythm. Absent: gallop, JVD, systolic murmur - GI/Abdominal GI/Abdominal exam: Present: normal bowel sounds, tenderness (She has mild tenderness in the lower quadrant), soft, other (She is very obese.). Absent: organomegaly - Extremities Exam Extremities exam: Absent: calf tenderness, edema - Neurological Exam Neurological exam: Present: alert, oriented X3, CN II-XII intact. Absent: motor sensory deficit - Psychiatric Psychiatric exam: Present: normal affect, normal mood - Skin Skin exam: Present: warm, dry Results - Labs CBC & BMP: 03/11/17 00:17 03/11/17 00:17 - Diagnostic Findings Procedure: Chest x-ray: image reviewed by me, report reviewed by me (Chest x- ray shows cardiomegaly with slight increased markings bilaterally. Her x-rays did suggest mild volume overload) Assessment and Plan (1) Tubo-ovarian abscess Status: Acute Assessment and plan: The patient has been ill with a tubo-ovarian abscess and this is likely the source of fever. She will continue with IV antibiotics. Current Visit: Yes (2) Fever Status: Acute Assessment and plan: Her fever is getting better now. Current Visit: Yes (3) Bilateral pulmonary infiltrates on chest x-ray Status: Acute Assessment and plan: The patient had an abnormal x-ray and much of this is probably volume overload. She may have a mild pneumonitis but she is much better. Current Visit: Yes (4) HECTOR (obstructive sleep apnea) Status: Acute Assessment and plan: She has a CPAP machine and she says she will start using it at night. Current Visit: Yes
--- NOTE | 2017-03-11 09:23 | Hospitalist Progress Note ---
Assessment and Plan (1) Leukocytosis Status: Acute Assessment and plan: Improving on the current antibiotic regimen. Possibly due to tubo-ovarian abscess but there is also the possibility of this being chronic cxr and ct with bilateral infiltrates, could possibly be pneumonia, clinda and gent provide some coverage but not atypical coverage, added azithromycin, might be able to stop soon Blood cultures negative to date, f/u final and repeat cultures sputum culture with no growth, legionella and strep pending C.diff negative Current Visit: Yes (2) Fever Status: Acute Current Visit: Yes (3) Bilateral pulmonary infiltrates on chest x-ray Status: Acute Assessment and plan: Covering for pneumonia Given dose of lasix without improvement, will continue lasix for now, repeat cxr in am Pulmonary consulted, added prednisone and incentive spirometry Current Visit: Yes (4) Shortness of breath Status: Acute Assessment and plan: Patient denies previous episodes of this CXR with bilateral infiltrates CT PE without PE but does show bilateral basilar alveolar infiltrates Will treat as pna CXR without much change, bnp only very mildly elevated, f/u echo IV fluids have been discontinued, continue lasix for today She also has HECTOR and does not wear her cpap at home Current Visit: Yes (5) HECTOR (obstructive sleep apnea) Status: Acute Assessment and plan: Continue nightly cpap Encourage to continue at discharge Current Visit: Yes Hospitalist: Subjective Interval history: Patient is doing much better today. Reports that she has been up and walking around. She is eager for discharge. She is no longer having pelvic pain. Her fever curve has improved, afebrile for almost 24 hours. I am not convinced that she has pneumonia, appears to be pulmonary edema to me that has improved with diuresis. Her shortness of breath is now completely resolved. As far as another infectious process her blood cultures are negative x2. If the thought is that she does not have a tubo-ovarian abscess as the cause of her infection, I would recommend consulting infectious disease for further assistance. Exam - Constitutional Vitals: Period Temp Pulse Resp BP Sys/Ferrer Pulse Ox Last 24 Hr 98.1 F-99.7 F 84-103 18-26 119-137/63-88 83-99 General appearance: over weight - Head Head exam: Present: normocephalic, atraumatic - Eye Eye exam: Present: EOMI Pupils: Present: TRINI - ENT ENT exam: Present: normal exam - Neck Neck exam: Present: normal inspection - Respiratory Respiratory exam: Present: clear to auscultation bilaterally. Absent: rhonchi, wheezes - Cardiovascular Cardiovascular exam: Present: regular rate and rhythm - GI/Abdominal GI/Abdominal exam: Present: normal bowel sounds, soft. Absent: tenderness, rebound - Extremities Exam Extremities exam: Present: normal inspection - Back Exam Back exam: Present: normal inspection - Neurological Exam Neurological exam: Present: alert, oriented X3 - Psychiatric Psychiatric exam: Present: normal affect, normal mood - Skin Skin exam: Present: warm, intact Results - Labs CBC & BMP: 03/11/17 00:17 03/11/17 08:38
--- NOTE | 2017-03-11 11:31 | ECHO Report ---
Sophie Epps Exam Date: 03/10/2017 14:09 Referring Physician: Technologist: Sofía Rosales Age: 37 Ht (in): 65 Wt (lb): 336 Gender: F Exam Location: [facility] Echo Indications: Sob, leukocytosis, fever, tubo/ ovarion abscess BP: 133 / 87 HR: 116 Rhythm: Sinus Technical Quality: IMPRESSIONS 1. Left ventricle is normal size systolic function with mild concentric left ventricular hypertrophy. Ejection fraction is 60%. 2. Right atrium is probably mildly dilated. 3. There is mild possibly moderate tricuspid regurgitation. 4. Probably normal right-sided pressures. 5. Other valvular structures are anatomically function normal. 6. Left atrium and right ventricle normal size. MEASUREMENTS (Male / Female) Normal Values 2D ECHO LV Diastolic Diameter PLAX 3.6 cm 4.2 - 5.9 / 3.9 - 5.3 cm LV Systolic Diameter PLAX 2.0 cm LV Fractional Shortening PLAX 43.1 % IVS Diastolic Thickness 1.5 cm 0.6 - 1.0 / 0.6 - 0.9 cm LVPW Diastolic Thickness 1.3 cm 0.6 - 1.0 / 0.6 - 0.9 cm Aortic Root Diameter 3.1 cm LA Systolic Diameter LX 3.5 cm 3.0 - 4.0 / 2.7 - 3.8 cm DOPPLER TR Peak Velocity 271.0 cm/s TR Peak Gradient 29.4 mmHg FINDINGS Left Ventricle Normal left ventricular cavity size. Mild concentric left ventricular hypertrophy. Left ventricular ejection fraction is estimated at 55-60 %. Right Ventricle Normal right ventricular size and systolic function. Right Atrium The right atrium is mildly enlarged. Left Atrium Normal left atrial size. Mitral Valve Morphologically normal mitral valve. Doppler is grossly normal. Aortic Valve The aortic valve is trileaflet, delicate and has normal motion. Doppler is normal. Tricuspid Valve Morphologically normal tricuspid valve. Mild - moderate tricuspid valve regurgitation. Tricuspid regurgitation velocities suggest a PAP of 39 mmHg. Pulmonic Valve Morphologically normal pulmonic valve. Pericardium No pericardial effusion. Aorta Normal size aortic root and proximal ascending aorta. Julio C Chamorro MD (Electronically Signed) Final Date: 11 March 2017 11:09
[2017-03-11] MEDS: AZITHROMYCIN 250 MG TABLET PO SCH (21:06)
[2017-03-11] MEDS: GENTAMICIN INJ 220 MG in SODIUM CHLORIDE 0.9% 100 ML IV SCH (22:10)
[2017-03-12] MEDS: ALBUTEROL/IPRATROPIUM 3 ML NEB RESP TX SCH ×7 (01:45→23:57)
[2017-03-12] MEDS: CLINDAMYCIN INJ 900 MG in PREMIX 1 EACH IV SCH ×3 (01:58→16:49)
[2017-03-12] MEDS: HEPARIN 5,000 UNIT/1 ML VIAL SUBCUT SCH ×3 (06:24→22:34)
[2017-03-12 06:44] LABS: Basophils # 0.1 10*3/uL (0.0-0.2); Basophils % 0.2 % (0.0-0.8); Eosinophils # 0.2 10*3/uL (0.0-0.87); Eosinophils % 0.8 % (0.00-10.9); Hemoglobin 9.7 GM/DL (12.0-16.0); Immature Granulocytes % 3.7 %; Immature Granulocytes Absolute 0.74 #; Lymphocytes # 3.1 10*3/uL (1.4-4.0); Lymphocytes % 15.2 % (21.3-54.2); Mean Corpuscular HGB Conc 33.4 GM/DL (32-36); Mean Corpuscular Hemoglobin 29 PG (27-34); Mean Corpuscular Volume 87.3 FL (87-102); Mean Platelet Volume 11.8 FL (9.6-12.0); Monocytes # 1.3 10*3/uL (0.11-0.8); Monocytes % 6.4 % (1.7-12.7); NRBC # 0.09 10*3/uL; Neutrophils # 14.9 10*3/uL (1.4-7.4); Neutrophils % 73.7 % (38.7-73.9); Platelet Count 419 T/CUMM (130-400); Red Blood Count 3.32 MC/CUMM (3.8-5.5); White Blood Count 20.2 T/CUMM (4-12)
[2017-03-12 07:18] LABS: Osmolality,Calculated 283.1 MOS/KG (273-304); Potassium 3.7 MMOL/L (3.5-5.1)
[2017-03-12 07:40] LABS: Band Neutrophils 12 % (0-10); Eosinophils 1 % (0-10); Hypochromasia 2+; Lymphocytes 12 % (20-55); Microcytosis 1+; Platelet Estimate Adequate; Polychromasia Slight; Segmented Neutrophils 68 % (50-85); Total Cells Counted 100
--- NOTE | 2017-03-12 08:18 | OB/GYN Progress Note ---
Assessment and Plan (1) Adnexal mass Status: Acute Assessment and plan: Will obtain pelvic ultrasound for reevaluation of the left adnexa. I discussed with the patient that should there be a persistence in the size of the left adnexal findings consistent with either tubo-ovarian abscess or ovarian cyst that surgical intervention will be necessary. Patient is agreeable with plan. Current Visit: Yes DOCTOR OF PODIATRY - PN: Subj Interval history: Patient states that her pain is significantly improved rating her pain a 1-2 out of 10 this morning. She denies any vaginal bleeding Exam DOCTOR OF PODIATRY - Constitutional Vitals: Vital Signs Temp Pulse Pulse Resp BP Pulse Ox Pulse Ox 03/12/17 07:15 79 22 03/12/17 07:09 75 20 03/12/17 06:00 24 03/12/17 04:35 97.1 F L 73 24 132/82 98 03/12/17 04:28 69 18 97 03/12/17 01:45 74 18 97 03/12/17 00:05 97.9 F 76 28 H 118/60 03/11/17 19:56 95 H 18 97 03/11/17 19:00 98.9 F 90 18 133/68 95 03/11/17 16:00 96.7 F L 95 H 20 125/75 97 03/11/17 14:08 90 18 97 03/11/17 14:03 89 18 96 03/11/17 12:00 100.7 F H 98 H 20 140/88 94 L 03/11/17 11:19 97 H 18 97 03/11/17 11:14 103 H 18 96 Pulse Ox 03/12/17 07:15 99 03/12/17 07:09 89 L 03/12/17 06:00 03/12/17 04:35 03/12/17 04:28 03/12/17 01:45 03/12/17 00:05 97 03/11/17 19:56 03/11/17 19:00 03/11/17 16:00 03/11/17 14:08 03/11/17 14:03 03/11/17 12:00 03/11/17 11:19 03/11/17 11:14 General appearance: no acute distress - Neck Neck exam: Present: normal inspection - Respiratory Respiratory exam: Present: clear to auscultation bilaterally - Cardiovascular Cardiovascular exam: Present: regular rate and rhythm - GI/Abdominal GI/Abdominal exam: Present: normal bowel sounds, soft - Extremities Exam Extremities exam: Present: normal inspection - Back Exam Back exam: Present: normal inspection - Neurological Exam Neurological exam: Present: alert, oriented X3 - Psychiatric Psychiatric exam: Present: normal affect, normal mood - Skin Skin exam: Present: normal color, warm Results - Labs CBC & BMP: 03/12/17 06:21 03/12/17 06:21
--- NOTE | 2017-03-12 09:12 | Pulmonology Progress Note ---
Pulmonary - PN: Subj Interval history: Patient is a 37-year-old black lady that is being treated for a tubo-ovarian abscess. She has a history of hypertension and is very overweight. Apparently over the weekend she had more shortness of breath along with some mild cough with yellow sputum. She is on multiple antibiotics. She has diuresed fairly well and feels much better. She says she is not short of breath now and not coughing much. Her abdominal pain is much better. Her fever is down. Overall she says she is doing much better. Exam (Progress Note) - Constitutional Vitals: Period Temp Pulse Resp BP Sys/Ferrer Pulse Ox Last 24 Hr 96.7 F-100.7 F 69-103 18-28 117-140/60-88 89-99 Exam: General appearance: no acute distress (She looks quite comfortable. She is not having any respiratory distress.), morbidly obese - Head Head exam: Present: normal inspection, normocephalic - Eye Eye exam: Present: EOMI. Absent: scleral icterus Pupils: Present: TRINI - ENT ENT exam: Present: other (She has a class III Mallampati exam) - Neck Neck exam: Present: normal inspection. Absent: lymphadenopathy, thyromegaly - Respiratory Respiratory exam: Present: Her lungs have good breath sounds bilaterally and I do not hear any wheezing. She has slight crackles in the bases . - Cardiovascular Cardiovascular exam: Present: regular rate and rhythm. Absent: gallop, JVD, systolic murmur - GI/Abdominal GI/Abdominal exam: Present: normal bowel sounds, her abdomen is soft and nontender now. - Extremities Exam Extremities exam: Absent: calf tenderness, edema - Neurological Exam Neurological exam: Present: alert, oriented X3, CN II-XII intact. Absent: motor sensory deficit - Psychiatric Psychiatric exam: Present: normal affect, normal mood - Skin Skin exam: Present: warm, dry Results - Labs CBC & BMP: 03/12/17 06:21 03/12/17 06:21 Assessment and Plan (1) Tubo-ovarian abscess Status: Acute Assessment and plan: The patient has been ill with a tubo-ovarian abscess and this is likely the source of fever. She will continue with IV antibiotics. Overall she is feeling much better now. Current Visit: Yes (2) Fever Status: Acute Assessment and plan: Her fever is getting better now. She did not have any fever last night. Current Visit: Yes (3) Bilateral pulmonary infiltrates on chest x-ray Status: Acute Assessment and plan: The patient had an abnormal x-ray and much of this is probably volume overload. She may have a mild pneumonitis but she is much better. She is not having any cough or shortness of breath now and overall she sounds better. Current Visit: Yes (4) HECTOR (obstructive sleep apnea) Status: Acute Assessment and plan: She has a CPAP machine and she says she did use her CPAP last night. Current Visit: Yes
[2017-03-12] MEDS: DOCUSATE SODIUM 100 MG CAPSULE PO SCH ×2 (09:54→22:34)
[2017-03-12] MEDS: FUROSEMIDE 40 MG/4 ML VIAL IV SCH ×2 (09:54→16:56)
[2017-03-12] MEDS: predniSONE 20 MG TABLET PO SCH (09:54)
[2017-03-12] MEDS: PANTOPRAZOLE 20 MG TABLET PO SCH (09:54)
--- NOTE | 2017-03-12 10:43 | Hospitalist Progress Note ---
Assessment and Plan (1) Leukocytosis Status: Acute Assessment and plan: Up some today Possibly due to tubo-ovarian abscess but there is also the possibility of this being chronic, pelvic ultrasound today cxr and ct with bilateral infiltrates, could possibly be pneumonia, clinda and gent provide some coverage but not atypical coverage, added azithromycin, might be able to stop soon Blood cultures negative to date, f/u final and repeat cultures sputum culture with no growth, legionella and strep pending C.diff negative Current Visit: Yes (2) Fever Status: Acute Current Visit: Yes (3) Bilateral pulmonary infiltrates on chest x-ray Status: Acute Assessment and plan: Covering for pneumonia Given dose of lasix without improvement, will continue lasix for now Pulmonary consulted, added prednisone and incentive spirometry Current Visit: Yes (4) Shortness of breath Status: Acute Assessment and plan: Patient denies previous episodes of this CXR with bilateral infiltrates CT PE without PE but does show bilateral basilar alveolar infiltrates Will treat as pna continue lasix for today She also has HECTOR and does not wear her cpap at home Current Visit: Yes (5) HECTOR (obstructive sleep apnea) Status: Acute Assessment and plan: Continue nightly cpap Encouraged to continue at discharge Current Visit: Yes Hospitalist: Subjective Interval history: No acute events overnight. Continues to feel well. Denies any sob. Exam - Constitutional Vitals: Period Temp Pulse Resp BP Sys/Ferrer Pulse Ox Last 24 Hr 96.7 F-100.7 F 69-103 18-28 117-140/60-88 89-99 General appearance: over weight - Head Head exam: Present: normocephalic, atraumatic - Eye Eye exam: Present: EOMI Pupils: Present: TRINI - ENT ENT exam: Present: normal exam - Neck Neck exam: Present: normal inspection - Respiratory Respiratory exam: Present: clear to auscultation bilaterally. Absent: rhonchi, wheezes - Cardiovascular Cardiovascular exam: Present: regular rate and rhythm - GI/Abdominal GI/Abdominal exam: Present: normal bowel sounds, soft - Extremities Exam Extremities exam: Present: normal inspection - Back Exam Back exam: Present: normal inspection - Neurological Exam Neurological exam: Present: alert, oriented X3 - Psychiatric Psychiatric exam: Present: normal affect, normal mood - Skin Skin exam: Present: warm, intact Results - Labs CBC & BMP: 03/12/17 06:21 03/12/17 06:21
[2017-03-12] MEDS: GENTAMICIN INJ 220 MG in SODIUM CHLORIDE 0.9% 100 ML IV SCH ×2 (11:11→22:34)
[2017-03-12] MEDS: AZITHROMYCIN 250 MG TABLET PO SCH (22:33)
[2017-03-13] MEDS: CLINDAMYCIN INJ 900 MG in PREMIX 1 EACH IV SCH ×4 (01:14→23:51)
[2017-03-13] MEDS: ALBUTEROL/IPRATROPIUM 3 ML NEB RESP TX SCH ×6 (03:45→23:48)
[2017-03-13] MEDS: HEPARIN 5,000 UNIT/1 ML VIAL SUBCUT SCH ×3 (05:18→22:33)
[2017-03-13 06:32] LABS: Basophils # 0.1 10*3/uL (0.0-0.2); Basophils % 0.3 % (0.0-0.8); Eosinophils # 0.2 10*3/uL (0.0-0.87); Hematocrit 28.6 VOL% (35.7-47.0); Hemoglobin 9.6 GM/DL (12.0-16.0); Immature Granulocytes % 5.2 %; Immature Granulocytes Absolute 0.98 #; Lymphocytes # 3.8 10*3/uL (1.4-4.0); Lymphocytes % 20.1 % (21.3-54.2); Mean Corpuscular HGB Conc 33.6 GM/DL (32-36); Mean Corpuscular Hemoglobin 29 PG (27-34); Mean Corpuscular Volume 86.7 FL (87-102); Monocytes # 1.4 10*3/uL (0.11-0.8); Monocytes % 7.2 % (1.7-12.7); NRBC # 0.07 10*3/uL; Neutrophils # 12.6 10*3/uL (1.4-7.4); Neutrophils % 66.2 % (38.7-73.9); Platelet Count 454 T/CUMM (130-400); Red Cell Distribution Width 14.9 % (9.3-17.3)
[2017-03-13 07:01] LABS: Band Neutrophils 2 % (0-10); Eosinophils 2 % (0-10); Hypochromasia 1+; Lymphocytes 13 % (20-55); Metamyelocytes 1 %; Segmented Neutrophils 71 % (50-85); Total Cells Counted 100
[2017-03-13 07:02] LABS: Microcytosis 1+; Platelet Estimate Increased
[2017-03-13 07:08] LABS: Calcium 8.8 MG/DL (8.5-10.1); Osmolality,Calculated 280.3 MOS/KG (273-304); Potassium 3.6 MMOL/L (3.5-5.1)
--- NOTE | 2017-03-13 07:41 | XRay Report ---
Exam: XR chest 1V Date: 03/13/2017 4:00 AM Indication: Shortness of breath Comparison: 03/21/2017 Technical: AP Findings: Cardiomegaly is present. Low volume effusion present. No obvious pneumothorax. The mediastinum is unremarkable. Bony structures are unremarkable Impression: 1. Cardiomegaly with tiny low volume effusions and mild shunt vascularity bilaterally on the mid inspiratory chest. Follow-up two-view chest may be beneficial PROCEDURE INTERPRETED AT [facility] DEPARTMENT OF RADIOLOGY Final Report Signed by: Dr. Lamont Greco
--- NOTE | 2017-03-13 09:04 | Ultrasound Report ---
Exam: US pelvic complete Date: 03/13/2017 7:35 AM Comparison: 08/15/2016 [facility] ultrasound Indication: Ovarian abscess Technique: Transabdominal evaluation of the nongravid female pelvis was performed. Findings: Uterus: Measures 7.7 x 4 x 4.5 cm and is generally heterogeneous in appearance. Endometrial echo stripe: 0.8 cm. No focal free fluid within the endometrial canal Right ovary: 1.9 x 1 x 1.6 cm Left ovary: 8.4 x 8.5 x 5.7 cm. There are multiple heterogeneous hypoechoic lesions noted within the left ovary measuring approximately 4 cm maximum dimension. There is no significantly increased blood flow within the lesions although there is suggestion of residual color Doppler blood flow within the ovarian parenchyma. Free fluid: None Bladder: Not visualized. Impression: 1. Markedly enlarged left ovary with multiple hypoechoic heterogeneous lesions may represent complicated cysts containing hemorrhagic or proteinaceous material versus developing infection/abscess. A neoplastic process is not excluded. Although blood flow appears preserved within the left ovary, ovarian torsion remains a consideration. Consider further evaluation with CT imaging of the pelvis with intravenous contrast. 2. Essentially normal appearance of the uterus and right ovary. No significant free fluid within the dependent pelvis. Ultrasound images were captured and stored. PROCEDURE INTERPRETED AT [facility] DEPARTMENT OF RADIOLOGY Final Report Signed by: Dawson Hewitt
[2017-03-13] MEDS: predniSONE 20 MG TABLET PO SCH (09:24)
[2017-03-13] MEDS: FUROSEMIDE 40 MG/4 ML VIAL IV SCH ×2 (09:25→15:32)
[2017-03-13] MEDS: PANTOPRAZOLE 20 MG TABLET PO SCH (09:25)
[2017-03-13] MEDS: DOCUSATE SODIUM 100 MG CAPSULE PO SCH ×2 (09:25→22:45)
[2017-03-13] MEDS: GENTAMICIN INJ 220 MG in SODIUM CHLORIDE 0.9% 100 ML IV SCH ×2 (10:56→22:40)
--- NOTE | 2017-03-13 11:24 | OB/GYN Progress Note ---
Assessment and Plan (1) Adnexal mass Status: Acute Assessment and plan: Will obtain pelvic ultrasound for reevaluation of the left adnexa. I discussed with the patient that should there be a persistence in the size of the left adnexal findings consistent with either tubo-ovarian abscess or ovarian cyst that surgical intervention will be necessary. Patient is agreeable with plan. After reviewing utrasound results, this does not appear to be a TOA. Although I would still recommend removal of the left ovary, that may be done in an outpt setting once she her respiratory issues have reslved. Pt to f/u with me following discharge to arrange for outpaient surgery. Current Visit: Yes SENIOR CIVIL ENGINEER - PN: Subj Interval history: h/o pelvic pain and admitted with a working diagnosis of TOA. Ultrasound done that is more consistant with a chronic ovarian enlargment more so than TOA. Exam SENIOR CIVIL ENGINEER - Constitutional Vitals: Vital Signs Temp Pulse Pulse Resp BP Pulse Ox Pulse Ox 03/13/17 10:00 18 03/13/17 08:00 20 03/13/17 07:53 20 03/13/17 07:52 98.8 F 88 20 126/68 94 L 03/13/17 07:22 81 24 95 03/13/17 07:17 81 24 92 L 03/13/17 03:58 97.7 F 80 24 107/65 93 L 03/13/17 03:50 74 20 99 03/13/17 03:45 74 20 98 03/13/17 01:15 98.0 F 78 26 H 107/58 94 L 03/13/17 00:04 77 19 99 03/12/17 23:57 78 20 97 03/12/17 19:41 80 22 98 03/12/17 19:36 84 20 98 03/12/17 19:30 98.8 F 80 20 113/85 93 L 03/12/17 16:00 96.1 F L 83 20 134/78 94 L 03/12/17 14:31 81 20 94 L 03/12/17 14:24 78 20 94 L 03/12/17 12:00 98.1 F 90 20 144/84 93 L Results - Labs CBC & BMP: 03/13/17 05:02 03/13/17 05:02
--- NOTE | 2017-03-13 14:57 | Pulmonology Progress Note ---
Pulmonary - PN: Subj Interval history: Patient is a 37-year-old black lady that is being treated for a tubo-ovarian abscess. She has a history of hypertension and is very overweight. Apparently over the weekend she had more shortness of breath along with some mild cough with yellow sputum. She is on multiple antibiotics. She has diuresed fairly well and feels much better. She says he had a fairly good night last night and her breathing is better. She had an ultrasound today that did not suggest an abscess. She is not having any abdominal pain now. She feels like her cough and congestion have resolved. Her chest x-ray looks much better. She can probably go home at any time. Exam (Progress Note) - Constitutional Vitals: Period Temp Pulse Resp BP Sys/Ferrer Pulse Ox Last 24 Hr 96.1 F-98.8 F 74-88 18-30 107-134/58-85 92-99 Exam: General appearance: no acute distress (She looks quite comfortable. She is not having any respiratory distress.), morbidly obese - Head Head exam: Present: normal inspection, normocephalic - Eye Eye exam: Present: EOMI. Absent: scleral icterus Pupils: Present: TRINI - ENT ENT exam: Present: other (She has a class III Mallampati exam) - Neck Neck exam: Present: normal inspection. Absent: lymphadenopathy, thyromegaly - Respiratory Respiratory exam: Present: Her lungs have good air movement and are basically clear now. - Cardiovascular Cardiovascular exam: Present: regular rate and rhythm. Absent: gallop, JVD, systolic murmur - GI/Abdominal GI/Abdominal exam: Present: normal bowel sounds, her abdomen is soft and nontender now. - Extremities Exam Extremities exam: Absent: calf tenderness, edema - Neurological Exam Neurological exam: Present: alert, oriented X3, CN II-XII intact. Absent: motor sensory deficit - Psychiatric Psychiatric exam: Present: normal affect, normal mood - Skin Skin exam: Present: warm, dry Results - Labs CBC & BMP: 03/13/17 05:02 03/13/17 05:02 - Diagnostic Findings Procedure: Chest x-ray: image reviewed by me, report reviewed by me (Chest x- ray showed mild cardiomegaly with minimal changes in the bases.) Assessment and Plan (1) Tubo-ovarian abscess Status: Acute Assessment and plan: The patient has a left ovarian mass and may need surgery at some point. Current Visit: Yes (2) Fever Status: Acute Assessment and plan: She is not having any fever now. Current Visit: Yes (3) Bilateral pulmonary infiltrates on chest x-ray Status: Acute Assessment and plan: The patient had an abnormal x-ray and much of this is probably volume overload. She may have a mild pneumonitis but she is much better. Her chest x-ray is improving and she does not have any shortness of breath now. Overall she is stable. She can go home from a pulmonary standpoint. Current Visit: Yes (4) HECTOR (obstructive sleep apnea) Status: Acute Assessment and plan: She has a CPAP machine and she says she did use her CPAP last night. Current Visit: Yes
--- NOTE | 2017-03-13 17:39 | Hospitalist Progress Note ---
Assessment and Plan (1) Leukocytosis Status: Acute Assessment and plan: Possibly due to tubo-ovarian abscess but there is also the possibility of this being chronic, pelvic ultrasound today cxr and ct with bilateral infiltrates, could possibly be pneumonia, clinda and gent provide some coverage but not atypical coverage, added azithromycin Now afebrile She is now on steroids, which could be contributing to this, she is clinically better and afebrile Blood cultures negative to date, f/u final and repeat cultures sputum culture with no growth C.diff negative Current Visit: Yes (2) Fever Status: Acute Current Visit: Yes (3) Bilateral pulmonary infiltrates on chest x-ray Status: Acute Assessment and plan: Covering for pneumonia Given dose of lasix without improvement, will continue lasix for now Pulmonary consulted, added prednisone and incentive spirometry Current Visit: Yes (4) Shortness of breath Status: Acute Assessment and plan: Patient denies previous episodes of this CXR with bilateral infiltrates CT PE without PE but does show bilateral basilar alveolar infiltrates Will treat as pna continue lasix for today She also has HECTOR and does not wear her cpap at home Current Visit: Yes (5) HECTOR (obstructive sleep apnea) Status: Acute Assessment and plan: Continue nightly cpap Encouraged to continue at discharge Current Visit: Yes Hospitalist: Subjective Interval history: No acute events overnight. Feeling much better. Has been afebrile for over 24 hours. Agree that she is ready for discharge whenever her primary is ready, with close outpatient follow-up. She still has leukocytosis, but now also on steroids, she is clinically better and afebrile. Exam - Constitutional Vitals: Period Temp Pulse Resp BP Sys/Ferrer Pulse Ox Last 24 Hr 97.7 F-98.8 F 74-100 18-30 107-126/58-85 92-99 General appearance: morbidly obese - Head Head exam: Present: normocephalic, atraumatic - Eye Eye exam: Present: EOMI Pupils: Present: TRINI - ENT ENT exam: Present: normal exam - Neck Neck exam: Present: normal inspection - Respiratory Respiratory exam: Present: clear to auscultation bilaterally. Absent: wheezes - Cardiovascular Cardiovascular exam: Present: regular rate and rhythm - GI/Abdominal GI/Abdominal exam: Present: normal bowel sounds, soft. Absent: tenderness, rebound - Extremities Exam Extremities exam: Present: normal inspection - Back Exam Back exam: Present: normal inspection - Neurological Exam Neurological exam: Present: alert, oriented X3 - Psychiatric Psychiatric exam: Present: normal affect, normal mood - Skin Skin exam: Present: warm, intact Results - Labs CBC & BMP: 03/13/17 05:02 03/13/17 05:02
[2017-03-13] MEDS ORDERED: AZITHROMYCIN 250 MG TABLET PO ONE (23:30)
[2017-03-13] MEDS: AZITHROMYCIN 250 MG TABLET PO SCH (23:37)
[2017-03-14] MEDS: ALBUTEROL/IPRATROPIUM 3 ML NEB RESP TX SCH ×2 (03:04→06:58)
[2017-03-14] MEDS: HEPARIN 5,000 UNIT/1 ML VIAL SUBCUT SCH (05:49)
[2017-03-14] MEDS ORDERED: PANTOPRAZOLE 40 MG TABLET PO SCH (07:26)
[2017-03-14 07:47] VITALS: BP 107/69
--- NOTE | 2017-03-14 08:32 | Pulmonology Progress Note ---
Pulmonary - PN: Subj Interval history: Patient is a 37-year-old black lady that is being treated for a tubo-ovarian abscess. She has a history of hypertension and is very overweight. Apparently over the weekend she had more shortness of breath along with some mild cough with yellow sputum. She is on multiple antibiotics. She has diuresed fairly well and feels much better. She says she had a fairly good night and her cough is better. She denies being short of breath. She is not having any abdominal pain. She is feeling much better and looks like she can go home Exam (Progress Note) - Constitutional Vitals: Period Temp Pulse Resp BP Sys/Ferrer Pulse Ox Last 24 Hr 97.0 F-98.8 F 79-100 16-30 105-125/54-75 93-99 Exam: General appearance: no acute distress (She looks quite comfortable. She is not having any respiratory distress.), morbidly obese - Head Head exam: Present: normal inspection, normocephalic - Eye Eye exam: Present: EOMI. Absent: scleral icterus Pupils: Present: TRINI - ENT ENT exam: Present: other (She has a class III Mallampati exam) - Neck Neck exam: Present: normal inspection. Absent: lymphadenopathy, thyromegaly - Respiratory Respiratory exam: Present: Her lungs have quiet breath sounds in the bases and I do not hear any rales or wheezing. - Cardiovascular Cardiovascular exam: Present: regular rate and rhythm. Absent: gallop, JVD, systolic murmur - GI/Abdominal GI/Abdominal exam: Present: normal bowel sounds, her abdomen is soft and nontender now. - Extremities Exam Extremities exam: Absent: calf tenderness, edema - Neurological Exam Neurological exam: Present: alert, oriented X3, CN II-XII intact. Absent: motor sensory deficit - Psychiatric Psychiatric exam: Present: normal affect, normal mood - Skin Skin exam: Present: warm, dry Results - Labs CBC & BMP: 03/13/17 05:02 03/13/17 05:02 Assessment and Plan (1) Tubo-ovarian abscess Status: Acute Assessment and plan: The patient has a left ovarian mass and may need surgery at some point. Current Visit: Yes (2) Fever Status: Acute Assessment and plan: She is not having any fever now. Current Visit: Yes (3) Bilateral pulmonary infiltrates on chest x-ray Status: Acute Assessment and plan: The patient had an abnormal x-ray and much of this is probably volume overload. She may have a mild pneumonitis but she is much better. Clinically she is much better and not having trouble breathing. Will stop prednisone. She can probably go home on oral antibiotics. Current Visit: Yes (4) HECTOR (obstructive sleep apnea) Status: Acute Assessment and plan: She has a CPAP machine and she says she did use her CPAP last night. Current Visit: Yes
--- NOTE | 2017-03-14 08:37 | Discharge Summary ---
Hospital Course - Hospital Course Hospital Course: This is a 37-year-old female patient who was admitted over the weekend by Dr. Chacon who was logistics operations manager covering my service. Patient was admitted secondary to pelvic pain, fever and leukocytosis. The working diagnosis initially was tubo- ovarian abscess as CT scan revealed what looked like a pretty good sized left ovarian mass. However the patient developed further symptoms consistent with a respiratory problem that would explain her elevated fever and white count pulmonary and internal medicine were consulted with IV antibiotics altered to accommodate her changing needs. Repeat ultrasound showed again a large left ovary however this finding was more consistent with a chronic change versus an acute. Patient responded well to IV antibiotics and recovered nicely from what appeared to be fluid overload with regard to her respiratory issues. Today patient has been afebrile for more than 48 hours. Her leukocytosis has significantly declined and she is feeling much better and ready for discharge. Patient will follow up with Dr. Israel next week to discuss further intervention of what appears to be a left ovarian cyst. Diagnosis - Discharge Diagnosis (1) Adnexal mass Status: Acute Discharge Plan - Discharge Data Disposition: Disch To Home/Self Care Condition at Discharge: Stable Discharge Diet: advance to your usual diet Activity: resume usual activities as tolerated Hygiene: no restrictions Weight Bearing at Discharge: weight bear as tolerated Driving: no restrictions Contact your physician if you experience:: fever over 101, Difficulty voiding, Redness or swelling, Nausea/Vomiting, Shortness of breath, Bleeding, pain uncontrolled by pain medications - Discharge Medications New Clindamycin Cap [Cleocin Cap] 300 mg PO Q8HR #30 capsule Sulfameth/Trimeth 800-160 Tab [Bactrim DS Tab] 1 tablet PO BID #20 tablet Continue Amlodipine Besylate 10 mg PO DAILY Allopurinol 300 mg PO DAILY hydroCHLOROthiazide [Hydrochlorothiazide] 25 mg PO DAILY - Follow Up or Referral Follow Up: Jae Israel MD [Physician] - 1 Week - Forms/Instructions Exam - Constitutional Vitals: Period Temp Pulse Resp BP Sys/Ferrer Pulse Ox Last 24 Hr 97.0 F-98.8 F 79-100 16-30 105-125/54-75 93-99 General appearance: no acute distress - Head Head exam: Present: normocephalic - Neck Neck exam: Present: normal inspection - Respiratory Respiratory exam: Present: clear to auscultation bilaterally - Cardiovascular Cardiovascular exam: Present: regular rate and rhythm - GI/Abdominal GI/Abdominal exam: Present: normal bowel sounds, soft - Extremities Exam Extremities exam: Present: normal inspection - Back Exam Back exam: Present: normal inspection - Neurological Exam Neurological exam: Present: alert, oriented X3 - Psychiatric Psychiatric exam: Present: normal affect, normal mood - Skin Skin exam: Present: normal color, warm Discharge Results Procedures and tests throughout hospitalization: Pending Orders 03/09/17 16:27 Blood Culture Stat 03/15/17 09:30 Gentamicin,Trough Timed Labs on day of discharge: Labs from last 24 hours 03/13/17 09:18 Gentamicin Trough 1.0 Preliminary micro results at discharge 03/09/17 16:27 Blood Culture - Preliminary Blood No growth at 3 days 03/09/17 16:27 Blood Culture - Preliminary Blood No growth at 3 days DS: Provider Date of admission: 03/07/17 20:16 Primary care physician: . No PCP Attending physician on admission: Divya Adair- Consults: 03/10/17 08:07 Consult to Physician [CONS] Routine Comment: sob with bilateral basilar infiltrates/pleural eff Consulting Provider: Shiv Sanchez Person Notified: dr sanchez 03/11/17 10:01 Consult to Pharmacy [CONS] Routine Reason for Pharmacy Consult: Dose/Manage Gentamicin Discharging clinician: Jae Israel MD
[2017-03-14] MEDS: DOCUSATE SODIUM 100 MG CAPSULE PO SCH (08:50)
[2017-03-14] MEDS: CLINDAMYCIN INJ 900 MG in PREMIX 1 EACH IV SCH (08:50)
--- NOTE | 2017-03-14 09:49 | Hospitalist Progress Note ---
Assessment and Plan (1) Leukocytosis Status: Acute Assessment and plan: Possibly due to tubo-ovarian abscess but there is also the possibility of this being chronic, pelvic ultrasound today cxr and ct with bilateral infiltrates, could possibly be pneumonia, clinda and gent provide some coverage but not atypical coverage, added azithromycin Now afebrile She is now on steroids, which could be contributing to this, she is clinically better and afebrile Blood cultures negative to date, f/u final and repeat cultures sputum culture with no growth C.diff negative Current Visit: Yes (2) Fever Status: Acute Current Visit: Yes (3) Bilateral pulmonary infiltrates on chest x-ray Status: Acute Assessment and plan: Covering for pneumonia Given dose of lasix without improvement, will continue lasix for now Pulmonary consulted, added prednisone and incentive spirometry Current Visit: Yes (4) Shortness of breath Status: Acute Assessment and plan: Patient denies previous episodes of this CXR with bilateral infiltrates CT PE without PE but does show bilateral basilar alveolar infiltrates Will treat as pna continue lasix for today She also has HECTOR and does not wear her cpap at home Current Visit: Yes (5) HECTOR (obstructive sleep apnea) Status: Acute Assessment and plan: Continue nightly cpap Encouraged to continue at discharge Current Visit: Yes Hospitalist: Subjective Interval history: No acute events overnight. Continues to do well. SOB is resolved, afebrile. She is to follow-up with her pcp in one week to have a cbc check. Steroids and IV lasix have been stopped. Exam - Constitutional Vitals: Period Temp Pulse Resp BP Sys/Ferrer Pulse Ox Last 24 Hr 97.0 F-98.8 F 79-100 16-30 105-125/54-75 93-99 General appearance: over weight - Head Head exam: Present: normocephalic, atraumatic - Eye Eye exam: Present: EOMI Pupils: Present: TRINI - ENT ENT exam: Present: normal exam - Neck Neck exam: Present: normal inspection - Respiratory Respiratory exam: Present: clear to auscultation bilaterally. Absent: wheezes - Cardiovascular Cardiovascular exam: Present: regular rate and rhythm - GI/Abdominal GI/Abdominal exam: Present: normal bowel sounds, soft. Absent: tenderness, rebound - Extremities Exam Extremities exam: Present: normal inspection - Back Exam Back exam: Present: normal inspection - Neurological Exam Neurological exam: Present: alert, oriented X3 - Psychiatric Psychiatric exam: Present: normal affect, normal mood - Skin Skin exam: Present: warm, intact Results - Labs CBC & BMP: 03/13/17 05:02 03/13/17 05:02 Specialty Discharge - Follow Up or Referrals Follow up with: Jae Israel MD [Physician] - 1 Week
--- NOTE | 2017-03-18 09:38 | Physician Query Form ---
CLICK EDIT DOCUMENT TO SELECT QUERY ANSWER --> OK --> SIGN Dulce Fregoso RN Clinical Legal Billing Specialist W) [phone] (f) [phone] [email or web address] PROVIDERS: Make your selection(s) from the choices in EACH section by typing an "x" and enter comments in the comment section. Please use your independent medical judgment in providing your response. This request does not imply that any particular answer is desired or expected. CLINICAL INDICATORS: (Providers should not edit this section) The below diagnosis was documented in the record, but is not consistently noted in subsequent documentation. Based on documentation of "Acute bilateral pulmonary infiltrates on CXR" "Possibly pneumonia but patient is on 3 antibiotics and most probable organisms are covered" "Covering for pneumonia" "Will treat as pneumonia" Treated with IV Cleocin, IV Flagyl, and IV Gentamicin. Diagnosis: Pneumonia Please clarify the following: ( x) The above diagnosis was monitored, evaluated, and/or treated and is a confirmed diagnosis ( ) The above diagnosis was ruled out ( ) The above diagnosis is still a likely, suspected, probable diagnosis ( ) Other, please specify: ( ) Clinically unable to determine COMMENTS: PLEASE ALSO DOCUMENT RESPONSE IN PROGRESS NOTES AND/OR DISCHARGE SUMMARY Use of terms such as suspected, likely, or probable (associated with a specific diagnosis that is being evaluated, monitored, or treated as if it exists) are acceptable and can be restated in the discharge summary if not ruled out. MTDD
== END 2017-03-14 11:23 | disposition home or self-care (01) | DRG 760 ==
LOC: N.2E 20:16
PROVIDERS: ADMIT Obstetrics & Gynecology; ATTEND Obstetrics & Gynecology